=== PATIENT | female | born 1950 | race Caucasian/White ===

== ENCOUNTER 2017-03-18 15:37 | Emergency (ER) | payer MEDICARE ==
[~2017-03-18 15:37] MED LIST: ALBU8I INH; BUPR1SUB6 SL; CLON0.5T PO; DYAZ PO; GABA800T PO; LISI-363 PO; MEVA40TA PO; MILN50 PO; ONDA1TAB16 PO; TRAZ100T50 PO; VITA-13 PO
[2017-03-18 15:45] VITALS: BP 163/79; PULSE 72; RESP 18; TEMP 98.9; O2SAT 99
[2017-03-18] MEDS ORDERED: SODIUM CHLOR 0.9% 1000 ML INJ 1,000 ML IV ONE (15:50)
[2017-03-18 15:52] VITALS: O2SAT 96
[2017-03-18] MEDS ORDERED: CLON0.5T PO (16:03)
[2017-03-18] MEDS ORDERED: LOVA40TA PO (16:03)
[2017-03-18] MEDS ORDERED: GABA800T PO (16:03)
[2017-03-18] MEDS ORDERED: TRAZ100T6 PO (16:03)
[2017-03-18] MEDS ORDERED: LISI-515 PO (16:03)
--- NOTE | 2017-03-18 16:04 | RADRPT ---
EXAM DATE/TIME: 03/18/2017 15:51 [place] COMPARISON: FLUOROSCOPY PORTABLE UP TO 1HR, August 22, 2015, 0:00. CT ABDOMEN & PELVIS W CONTRAST, March 07 16, 15:23. INDICATIONS : Stroke alert. Impaired speech. Right arm weakness. RADIATION DOSE: 62.81 CTDIvol (mGy) This report was called by Dr. Mary Scott to Dr. Valentino at 1559 MEDICAL HISTORY : Unobtainable. SURGICAL HISTORY : Unobtainable. ENCOUNTER: Initial ACUITY: 1 day PAIN SCALE: 0/10 LOCATION: cranial TECHNIQUE: Multiple contiguous axial images were obtained of the head. Using automated exposure control and adj ustment of the mA and/or kV according to patient size, radiation dose was kept as low as reasonably a chievable to obtain optimal diagnostic quality images. DICOM format image data is available electro nically for review and comparison. FINDINGS: CEREBRUM: The ventricles are normal for age. No evidence of midline shift, mass lesion, hemorrhage or acute in farction. No extra-axial fluid collections are seen. POSTERIOR FOSSA: The cerebellum and brainstem are intact. The 4th ventricle is midline. The cerebellopontine angle i s unremarkable. EXTRACRANIAL: The visualized portion of the orbits is intact. SKULL: The calvaria is intact. No evidence of skull fracture. CONCLUSION: 1. No acute intracranial abnormality is identified. Carl Scott MD on March 18, 2017 at 15:59 Board Certified Radiologist. This report was verified electronically.
--- NOTE | 2017-03-18 16:05 | PD ---
HPI Chief Complaint: Numbness/Tingling Time Seen by Provider: 15:50 Travel History International Travel<30 days: No Contact w/Intl Traveler<30days: No Traveled to known affect area: No History of Present Illness HPI 67-year-old female patient with history of hypertension, anxiety, presents to the ER today brought in by her , apparently she had been laying down on the beach, was normal at 1 PM, woke up and was having a hard time using her right hand to turkey picker her keys. She also states her speech is feeling like it is abnormal and she does not feel right. She was able to pick herself up and drive home. She denies any chest pains or any other issues. Modifying Factors: None Associated Signs & Symptoms: Right arm weakness, stuttering speech, stroke alert called Risk Factors: None PFSH Past Medical History Anxiety: Yes Depression: Yes Cancer: Yes (SKIN) Cardiovascular Problems: No COPD: Yes Diabetes: No Diminished Hearing: No Endocrine: No Fibromyalgia: Yes Gastrointestinal Disorders: Yes (GERD, HX PANCREATITIS ) Glaucoma: No Genitourinary: No Hiatal Hernia: No Hypertension: Yes Immune Disorder: No Musculoskeletal: Yes (ARTHRITIS, FIBROMYALGIA, DDD) Neurologic: Yes (NEUROPATHY LINDA ARMS / LEG) Psychiatric: Yes (ANXIETY) Reproductive: No Respiratory: Yes Thyroid Disease: No Menopausal: Yes Past Surgical History AICD: No Body Medical Devices: BREASTS, CERVICAL HARDWARE Eye Surgery: Yes (RIGHT CATARACT EXTRACT, LEFT MACULAR HOLE REP) Gynecologic Surgery: Yes (HYSTERECTOMY) Hysterectomy: Yes Joint Replacement: No Oral Surgery: Yes (TONSILLECTOMY) Pacemaker: No Other Surgery: Yes ("feb 2009,surgery on ovaries") Social History Alcohol Use: No (denies) Tobacco Use: Yes (1 PPD) Substance Use: No (denied ) Allergies-Medications (Allergen,Severity, Reaction): Coded Allergies: citric acid (Unverified Adverse Reaction, Intermediate, REGURGITATION, 05/23) Reported Meds & Prescriptions Reported Meds & Active Scripts Active Reported Lyrica (Pregabalin) 50 Mg Cap 50 Mg PO HS Cymbalta DR (Duloxetine HCl) 30 Mg Capdr 30 Mg PO HS Morphine ER (Morphine Sulfate) 15 Mg Tab 15 Mg PO DAILY Clonazepam 0.5 Mg Tab 0.5 Mg PO TID Trazodone (Trazodone HCl) 100 Mg Tablet 100 Mg PO HS Gabapentin 800 Mg Tab 800 Mg PO TID Lovastatin 40 Mg Tab 40 Mg PO HS Lisinopril 20 Mg Tab 20 Mg PO HS Clonazepam 0.5 Mg Tab 0.5 Mg PO BID PRN Review of Systems Except as stated in HPI: all other systems reviewed are Neg Physical Exam Narrative GENERAL: Well-developed very anxious appearing elderly white female patient currently in mild distress. Awake and oriented 3. SKIN: Focused skin assessment warm/dry. HEAD: Atraumatic. Normocephalic. EYES: Pupils equal and round. No scleral icterus. No injection or drainage. ENT: No nasal bleeding or discharge. Mucous membranes pink and moist. NECK: Trachea midline. No JVD. CARDIOVASCULAR: Regular rate and rhythm. No murmur appreciated. RESPIRATORY: No accessory muscle use. Clear to auscultation. Breath sounds equal bilaterally. GASTROINTESTINAL: Abdomen soft, non-tender, nondistended. Hepatic and splenic margins not palpable. MUSCULOSKELETAL: No obvious deformities. No clubbing. No cyanosis. No edema. NEUROLOGICAL: Awake and alert. No obvious cranial nerve deficits. Motor grossly within normal limits. Stuttering speech. Mild right leg pronator drift. PSYCHIATRIC: Very anxious mood and affect; insight and judgment normal. Data Data Last Documented VS Vital Signs Date Time Temp Pulse Resp B/P (MAP) Pulse Ox O2 Delivery O2 Flow Rate FiO2 03/18/17 16:16 68 18 146/73 (97) 98 Room Air 03/18/17 15:45 98.9 Orders Orders Cath For Specimen (03/18/17 15:50) Neuro Checks Q2HX12,Q4H (03/18/17 15:50) Nursing Bedside Swallow Assess .ONCE (03/18/17 15:50) Activity Bed Rest (03/18/17 15:50) Diet Npo (03/18/17 Dinner) Prothrombin Time / Inr (Pt) (03/18/17 15:50) Act Partial Throm Time (Ptt) (03/18/17 15:50) Complete Blood Count With Diff (03/18/17 15:50) Basic Metabolic Panel (Bmp) (03/18/17 15:50) Fibrinogen (03/18/17 15:50) Creatine Kinase (Cpk) (03/18/17 15:50) Troponin I (03/18/17 15:50) Ua Includes Microscopic (03/18/17 15:50) Drug Screen, Random Urine (03/18/17 15:50) Type And Screen (03/18/17 15:50) Ct Brain W/O Iv Contrast(Rout) (03/18/17 ) Electrocardiogram (03/18/17 ) Consult Neurology (03/18/17 15:50) Sodium Chlor 0.9% 1000 Ml Inj (Ns 1000 M (03/18/17 15:50) Blood Glucose (03/18/17 15:50) Ecg Monitoring (03/18/17 15:50) Iv Access Insert/Monitor (03/18/17 15:50) NPO (03/18/17 15:50) Oximetry (03/18/17 15:50) Oxygen Administration (03/18/17 15:50) Resp Oxygen Hi C Titrat 1-4 L (03/18/17 15:50) Aspirin (Aspirin) (03/18/17 16:15) Nih Stroke Scale - Nihss .On admission and discharge (03/18/17 16:15) Neuro Checks Q4H (03/18/17 16:15) Case Management Consult (03/18/17 ) Activity Bed Rest (03/18/17 16:15) Nursing Bedside Swallow Assess .ONCE (03/18/17 16:15) Scd Bilateral/Knee High DEBRA.QSHIFT (03/18/17 16:15) Hemoglobin (Hgb) A1c (03/18/17 16:15) Lipid Profile (03/19/17 06:00) Mra Brain W/O Contrast (Cow) (03/18/17 ) Mri Brain W/O Contrast (03/18/17 ) Echo 2d Comp With Doppler (03/18/17 ) Resp Oxygen Hi C Titrat 1-4 L (03/18/17 ) ^ Hold Medication (03/18/17 16:15) Sodium Chloride 0.9% Flush (Ns Flush) (03/18/17 21:00) Sodium Chloride 0.9% Flush (Ns Flush) (03/18/17 16:15) Sodium Chlor 0.9% 1000 Ml Inj (Ns 1000 M (03/18/17 16:15) Aspirin (Aspirin) (03/18/17 16:15) Bedside Glucose DEBRA.CSUGAR (03/18/17 16:15) ^ Discontinue Insulin Orders (03/18/17 16:15) Insulin Aspart Supplemtl Scale (Novolog (03/18/17 17:00) Dextrose 50% In Jose (Vial) Inj (D50w (Vi (03/18/17 16:15) Glucagon Inj (Glucagon Inj) (03/18/17 16:15) Consult Rehab Medicine (03/18/17 16:15) Continuous Pillowcase Cutter / Telemetry DEBRA.Q8H (03/18/17 16:15) Consult Stroke Navigator (03/18/17 ) Us Carotid Arteries Comp Bilat (03/19/17 ) Ed Discharge Order (03/18/17 16:29) Labs Laboratory Tests Test 03/18/17 15:55 White Blood Count 7.4 TH/MM3 Red Blood Count 5.09 MIL/MM3 Hemoglobin 14.8 GM/DL Hematocrit 43.8 % Mean Corpuscular Volume 86.0 FL Mean Corpuscular Hemoglobin 29.0 PG Mean Corpuscular Hemoglobin Concent 33.7 % Red Cell Distribution Width 13.8 % Platelet Count 197 TH/MM3 Mean Platelet Volume 7.7 FL Neutrophils (%) (Auto) 57.8 % Lymphocytes (%) (Auto) 32.9 % Monocytes (%) (Auto) 4.6 % Eosinophils (%) (Auto) 3.8 % Basophils (%) (Auto) 0.9 % Neutrophils # (Auto) 4.3 TH/MM3 Lymphocytes # (Auto) 2.4 TH/MM3 Monocytes # (Auto) 0.3 TH/MM3 Eosinophils # (Auto) 0.3 TH/MM3 Basophils # (Auto) 0.1 TH/MM3 CBC Comment DIFF FINAL Differential Comment Prothrombin Time 10.7 SEC Prothromb Time International Ratio 1.0 RATIO Activated Partial Thromboplast Time 24.5 SEC Blood Urea Nitrogen 7 MG/DL Creatinine 0.89 MG/DL Random Glucose 142 MG/DL Calcium Level 8.6 MG/DL Sodium Level 138 MEQ/L Potassium Level 3.7 MEQ/L Chloride Level 101 MEQ/L Carbon Dioxide Level 31.0 MEQ/L Anion Gap 6 MEQ/L Estimat Glomerular Filtration Rate 63 ML/MIN Total Creatine Kinase 82 U/L Troponin I LESS THAN 0.02 NG/ML MDM Medical Screen Exam Complete: Yes Emergency Medical Condition: Yes Medical Record Reviewed: Yes EKG Prior to Arrival: Yes Differential Diagnosis Stroke versus metabolic issues versus dehydration versus acute intercranial processes Narrative Course CAT scan was done and it was negative. Patient was seen in the ER by Dr. Gonzalez who saw the patient in the ER, and symptoms have resolved by time he saw her. He does not feel that she would be a good TPA candidate and that patient can get aspirin and be admitted for further evaluation. After lab work returned, I talked to the patient and have recommended that the patient be admitted to the hospital for a possible TIA. However, she is fairly anxious, declining admission at this time stating that she feels fine. I have talked her about the fact that TIAs can proceed a larger stroke and that she really needs further evaluation which is also recommended by neurologist, but she states understanding and does not want to stay. She will be leaving AGAINST MEDICAL ADVICE. I have also discussed the patient with Dr. Casey who states that he will set her up for MRI/MRA as an outpatient and close follow-up with primary care doctor. She should return for any worsening in symptoms. The plan and the risks of leaving have been discussed with her including risks of a larger stroke, and further morbidity, patient states understanding. AMA: The risks of leaving against medical advice without further evaluation treatment were discussed with the patient. These risks include cardiac dysfunction, cardiac dysrhythmia, possible heart attack, possible stroke or . The patient indicated understanding of these risks and appeared to have the capacity to make this decision. Stroke Alert NIHSS NIH Stroke Scale Result: 2 NIHSS Time Completed: 16:00 Thrombolytic Contraindications Contraindications Comment: Patient rapidly improved, not a TPA candidate Diagnosis Diagnosis: Primary Impression: TIA (transient ischemic attack) Admitting Physician Requests: Admit Disposition: 07 AGAINST MEDICAL ADVICE Condition: Stable Shelton Valentino MD Mar 18, 2017 16:05
[2017-03-18 16:08] LABS: AUTOMATED NEUTROPHIL # 4.3 TH/MM3 (1.8-7.7); BASOPHIL # 0.1 TH/MM3 (0-0.2); BASOPHIL % 0.9 % (0.0-2.0); EOSINOPHIL # 0.3 TH/MM3 (0-0.4); EOSINOPHIL % 3.8 % (0.0-4.0); HEMATOCRIT 43.8 % (35.0-46.0); HEMO FLAGS DIFF FINAL; LYMPH % 32.9 % (9.0-44.0); LYMPHOCYTE # 2.4 TH/MM3 (1.0-4.8); MEAN CORPUSCULAR HGB CONC 33.7 % (32.0-36.0); MONO % 4.6 % (0.0-8.0); NEUT % 57.8 % (16.0-70.0); PLATELET COUNT 197 TH/MM3 (150-450); RED BLOOD COUNT 5.09 MIL/MM3 (4.00-5.30); RED CELL DISTRIBUTION WIDTH 13.8 % (11.6-17.2); WHITE BLOOD COUNT 7.4 TH/MM3 (4.0-11.0)
[2017-03-18] MEDS ORDERED: CYMB30CA PO (16:09)
[2017-03-18] MEDS ORDERED: LYRI50CA PO (16:09)
[2017-03-18] MEDS ORDERED: MORP1TAB24 PO (16:09)
[2017-03-18 16:14] LABS: CHLORIDE 101 MEQ/L (98-107); POTASSIUM 3.7 MEQ/L (3.5-5.1); SODIUM (NA) 138 MEQ/L (136-145)
[2017-03-18] MEDS ORDERED: GLUCAGON 1 MG/ML VIAL OTHER PRN (16:15)
[2017-03-18] MEDS ORDERED: ASPIRIN 325 MG TAB PO ONE (16:15)
[2017-03-18] MEDS ORDERED: ASPIRIN 325 MG TAB PO SCH (16:15)
[2017-03-18] MEDS ORDERED: DEXTROSE 50% IN WATER 50 ML VIAL(D50) IV PUSH PRN (16:15)
[2017-03-18] MEDS ORDERED: SODIUM CHLORIDE 0.9% FLUSH 5 ML FLUSH IV FLUSH PRN (16:15)
[2017-03-18] MEDS ORDERED: SODIUM CHLOR 0.9% 1000 ML INJ 1,000 ML IV SCH (16:15)
[2017-03-18 16:16] VITALS: BP 146/73; PULSE 68; RESP 18; O2SAT 98
[2017-03-18 16:17] LABS: ANION GAP 6 MEQ/L (5-15); BLOOD UREA NITROGEN 7 MG/DL (7-18)
[2017-03-18 16:20] LABS: APTT (PATIENT) 24.5 SEC (24.3-30.1); GLOMERULAR FILTRATION RATE 63 ML/MIN (>89); PROTHROMBIN TIME - PATIENT 10.7 SEC (9.8-11.6)
[2017-03-18 16:26] LABS: CREATINE KINASE 82 U/L (26-192)
--- NOTE | 2017-03-18 16:49 | MB ---
cc: KAREEM RUSS DATE OF CONSULTATION 03/18/17 REASON FOR CONSULTATION Stroke alert. HISTORY OF PRESENT ILLNESS Ms. Mcclure is a 67-year-old woman who has history of hyperlipidemia, hypertension. She was on the beach today. Apparently fell asleep around 1 o'clock. This afternoon when she woke up she had trouble moving the right hand with clumsiness of the hand and weakness of the right arm and some hesitancy of her speech. She presented immediately to the hospital, a stroke alert was called. Since being brought to the ER, however, she has had marked improvement in her symptomatology, feels that she is back to her baseline state. Initial NIH stroke scale was 2. PERSONAL HISTORY There is a history of hypertension, hyperlipidemia, possible stroke in the past. MEDICATIONS She takes: 1. Lisinopril. 2. Pravastatin. 3. Gabapentin. 4. Buprenorphine. 5. Naloxone. 6. Dyazide. 7. Ventolin. 8. Clonazepam. 9. Desyrel. 10. Vitamin D3. ALLERGIES CITRIC ACID. NEUROLOGIC EXAMINATION VITAL SIGNS: Blood pressure 162/79, pulse 72, respirations 18, temperature 98 degrees. NEURO: Higher cortical functions at this time normal. Her speech is normal at this time. She is somewhat anxious but no evidence of any aphasia or dysarthria. Cranial nerves are intact. Motor exam demonstrates 5/5 strength in both upper and lower extremities. There is no drift. Fine motor skills are normal. Reflexes are symmetric. Sensory exam intact. There is no Babinski sign present. IMAGING STUDIES CT of the brain is no acute change present. LABORATORY DATA White count 7,400, hemoglobin 14.8, hematocrit 43.8%, platelet count 197,000. Sodium is pending. Coags pending. CARDIOLOGY STUDIES Cardiac telemetry was normal sinus rhythm. No a-fib. IMPRESSION Probable TIA which appears to be resolving and resolved at this time. Therefore, she is not a candidate for IV TPA due to the rapid resolution of symptoms. RECOMMENDATIONS Will start aspirin 325 milligrams daily. Recommend admission for further evaluation with carotid ultrasound, echocardiogram, MRI, MRA of the brain and lipid panel. MD MARTITA Dejesus/PAUL /4:13 PM /4:28 PM
[2017-03-18] MEDS ORDERED: INSULIN ASPART SUPPLEMENTAL SCALE SQ SCH (17:00)
--- NOTE | 2017-03-18 18:43 | EKG ---
Date Performed: 03/18/2017 Time Performed: 16:11:30 PTAGE: 67 years EKG: Sinus rhythm POSSIBLE LEFT ATRIAL ENLARGEMENT BORDERLINE ECG PREVIOUS TRACING : 08/12/2015 10.25 No significant change from previous tracing noted. DOCTOR: Surya Brower Interpretating Date/Time 03/18/2017 18:42:08
[2017-03-18] MEDS ORDERED: SODIUM CHLORIDE 0.9% FLUSH 5 ML FLUSH IV FLUSH SCH (21:00)
[2017-03-19 16:16] LABS: HEMOGLOBIN A1b 1.7 %; HEMOGLOBIN Ao 85.4 %; HEMOGLOBIN LA1C 2.1 %; HEMOGLOBIN P3 3.5 %
== END 2017-03-18 16:49 | disposition left against medical advice (07) ==
LOC: PHED 15:37
DX: G45.9 Transient cerebral ischemic attack, unspecified (principal); R94.31 Abnormal electrocardiogram [ECG] [EKG]; I10 Essential (primary) hypertension; F17.200 Nicotine dependence, unspecified, uncomplicated; Z86.59 Personal history of other mental and behavioral disorders; Z85.828 Personal history of other malignant neoplasm of skin; Z87.09 Personal history of other diseases of the respiratory system; Z87.39 Personal history of other diseases of the musculoskeletal system and connective tissue; Z87.19 Personal history of other diseases of the digestive system; Z86.69 Personal history of other diseases of the nervous system and sense organs; Z53.29 Procedure and treatment not carried out because of patient's decision for other reasons
CPT/HCPCS: 70450; 80048; 82550; 83036; 84484; 85025; 85384; 85610; 85730; 86850; 86900; 86901; 93005; 99285; J7030